=== PATIENT | female | born 1980 | race African-American/Black ===

== ENCOUNTER 2017-07-02 20:55 | Emergency (ER) | payer SELFPAY ==
[~2017-07-02] VITALS: Ht 157.5 cm; Wt 87.5 kg
[2017-07-02 21:53] LABS: INFLUENZAE A&B ANTIGEN (RAPID) NEGATIVE (NEGATIVE); STREPTOCOCCUS GRP A ANTIGEN NEGATIVE (NEGATIVE)
--- NOTE | 2017-07-02 22:35 | Diagnostic Imaging Report ---
EXAMINATION: CHEST 2 VIEWS INDICATION: Chest pain COMPARISON: None FINDINGS: TUBES and LINES: None. LUNGS: Lungs are well inflated. Lungs are clear. There is no evidence of pneumonia or pulmonary edema. PLEURA: No pleural effusion or pneumothorax. HEART AND MEDIASTINUM: The cardiomediastinal silhouette is unremarkable. BONES AND SOFT TISSUES: No acute osseous lesion. Soft tissues are unremarkable. UPPER ABDOMEN: No free air under the diaphragm. IMPRESSION: No acute thoracic abnormality. Signed by: Dr. Wild Key M.D. on 07/02/2017 10:31 PM
[2017-07-02 22:50] VITALS: BP 141/69
== END 2017-07-02 22:53 | disposition home or self-care (01) ==
LOC: ER 20:55
DX: E04.9 Nontoxic goiter, unspecified (principal); R07.0 Pain in throat; Z85.43 Personal history of malignant neoplasm of ovary; J45.909 Unspecified asthma, uncomplicated
CPT/HCPCS: 71020; 83518; 87070; 87400; 93005; 99283

== ENCOUNTER 2017-07-20 18:03 | Emergency (ER) | payer SELFPAY ==
[~2017-07-20] VITALS: Ht 157.5 cm; Wt 87.5 kg
--- OUTSIDE RECORDS SUMMARY | 2017-07-20 18:05 | XMS REPORT | Clinical Summary ---
Author Author [facility] Organization [facility] Address Unknown Phone Unavailable Care Team Providers Care Machine Cage Maker Name Role Phone Asked, Pcp PCP Unavailable Allergies Active Allergy Reactions Severity Noted Date Comments Meperidine Shortness Of Breath High 02/15/2017 angioedema Ibuprofen Shortness Of Breath High 02/15/2017 angioedema Ketorolac Shortness Of Breath High 02/15/2017 angioedema Current Medications Prescription Sig. Disp. Refills Start End Date Status Date pantoprazole (PROTONIX) Take 20 mg by mouth Active 20 MG EC tablet daily. atorvastatin (LIPITOR) 10 Take 10 mg by mouth Active MG tablet daily. zolpidem (AMBIEN) 10 mg Take 10 mg by mouth Active tablet nightly as needed for sleep. aspirin (ECOTRIN) 81 MG Take 81 mg by mouth Active enteric coated tablet daily. albuterol (PROAIR Inhale 2 puffs every 6 03/20/20 Discontin HFA,PROVENTIL (six) hours as needed for 17 ued HFA,VENTOLIN HFA) 90 wheezing. mcg/actuation inhaler traMADol (ULTRAM) 50 mg Take 1 tablet (50 mg 20 tablet 0 02/16/20 tablet total) by mouth every 6 17 17 (six) hours as needed for moderate pain for up to 5 days. methylPREDNISolone follow package directions 21 tablet 0 02/16/20 (MEDROL DOSEPAK) 4 mg 17 17 tablet azithromycin (ZITHROMAX) Take first 2 tablets 6 tablet 0 02/16/20 250 MG tablet together, then 1 every 17 17 day until finished. albuterol (ACCUNEB) 2.5 Take 3 mL (2.5 mg total) 75 mL 0 03/20/20 mg /3 mL (0.083 %) by nebulization every 4 17 17 nebulizer solution (four) hours as needed for wheezing for up to 30 days. albuterol (PROAIR Inhale 2 puffs every 4 1 Inhaler 0 03/20/20 HFA,PROVENTIL (four) hours as needed 17 17 HFA,VENTOLIN HFA) 90 for wheezing for up to 30 mcg/actuation inhaler days. predniSONE (DELTASONE) 20 Take 3 tablets (60 mg 15 tablet 0 03/20/20 03/25/20 mg tablet total) by mouth daily for 17 17 5 days. acetaminophen-codeine Take 1-2 tablets by mouth 20 tablet 0 03/20/20 03/25/20 (TYLENOL WITH CODEINE #3) every 4 (four) hours as 17 17 300-30 mg per tablet needed for moderate pain for up to 5 days. Active Problems Not on file Encounters Date Type Specialty Care Team Description 03/25/2017 Emergency Emergency Medicine Antonio Romero, Soft palate edema DO (Primary Dx);Neck pain 03/20/2017 Emergency Emergency Medicine Desmond Ugarte MD Moderate asthma with exacerbation, unspecified whether persistent (Primary Dx);Cyst of left ovary 02/15/2017 Emergency Emergency Medicine Corie Bonner MD Asthma exacerbation (Primary Dx) after 07/19/2016 Social History Tobacco Use Types Packs/Day Years Used Date Never Smoker Alcohol Use Drinks/Week oz/Week Comments No Sex Assigned at Date Recorded Not on file Last Filed Vital Signs Vital Sign Reading Time Taken Blood Pressure 120/62 03/25/2017 4:52 AM CDT Pulse 69 03/25/2017 4:52 AM CDT Temperature 37.2 C (98.9 F) 03/25/2017 4:52 AM CDT Respiratory Rate 16 03/25/2017 4:52 AM CDT Oxygen Saturation 99% 03/25/2017 4:52 AM CDT Inhaled Oxygen - - Concentration Weight 85.3 kg (188 lb) 03/25/2017 1:58 AM CDT Height 157.5 cm (5' 2") 03/25/2017 1:58 AM CDT Body Mass Index 34.39 03/25/2017 1:58 AM CDT Plan of Treatment Health Maintenance Due Date Last Done Comments PAP SMEAR 2001 INFLUENZA VACCINE 01/10/2017 Results * CT Soft Tissue Neck W Contrast (03/25/2017 4:01 AM) Specimen Performing Laboratory [facility] [address] [place] [address] Narrative EXAMINATION: CT SOFT TISSUE NECK W CONTRAST CLINICAL HISTORY: neck swellingshortness of breath COMPARISON:None TECHNIQUE: Postcontrast enhanced imaging through the neck was performed from the upper chest through the skull base with coronal and sagittal reconstructed images. CT scans are performed using radiation dose reduction techniques (iterative reconstruction and/or automated exposure control). Technical factors are evaluated and adjusted to ensure appropriate moderation of exposure. Automated dose management technology is applied to adjust radiation exposure while achieving a diagnostic quality image. FINDINGS: There may been slight swelling of the soft palate. Airway is otherwise patent. The nasopharynx, oropharynx, oral cavity, parapharyngeal space, and retropharyngeal space are normal. The larynx, hypopharynx, and supraglottis are normal. The orbits, paranasal sinuses, and skull base are normal. No incidental thyroid nodules are noted. No lymphadenopathy. The visualized vascular and osseous structures are normal. The lung apices are unremarkable. IMPRESSION: Slight swelling of the soft palate. Airway is otherwise patent. [id number] Procedure Note Interface, Radiology Results Incoming - 03/25/2017 4:09 AM CDT EXAMINATION: CT SOFT TISSUE NECK W CONTRAST CLINICAL HISTORY: neck swelling shortness of breath COMPARISON: None TECHNIQUE: Postcontrast enhanced imaging through the neck was performed from the upper chest through the skull base with coronal and sagittal reconstructed images. CT scans are performed using radiation dose reduction techniques (iterative reconstruction and/or automated exposure control). Technical factors are evaluated and adjusted to ensure appropriate moderation of exposure. Automated dose management technology is applied to adjust radiation exposure while achieving a diagnostic quality image. FINDINGS: There may been slight swelling of the soft palate. Airway is otherwise patent. The nasopharynx, oropharynx, oral cavity, parapharyngeal space, and retropharyngeal space are normal. The larynx, hypopharynx, and supraglottis are normal. The orbits, paranasal sinuses, and skull base are normal. No incidental thyroid nodules are noted. No lymphadenopathy. The visualized vascular and osseous structures are normal. The lung apices are unremarkable. IMPRESSION: Slight swelling of the soft palate. Airway is otherwise patent. [id number] * Urinalysis screen and microscopy, with reflex to culture (03/25/2017 2:20 AM) Only the most recent of 2 results within the time period is included. Component Value Ref Range Specimen site Clean catch Color, UA Straw Appearance, UA Hazy Specific gravity, UA 1.015 1.001 - 1.035 pH, UA 6.0 5.0 - 8.5 Protein, UA 1+ (A) Negative Glucose, UA Negative Negative Ketones, UA Negative Negative Bilirubin, UA Negative Negative Blood, UA Negative Negative Nitrite, UA Negative Negative Urobilinogen, UA <2.0 <2.0 Leukocyte esterase, UA Negative Negative Epithelial cells, UA 2 /HPF WBC, UA 3 0 - 4 /HPF RBC, UA 1 0 - 2 /HPF Bacteria, UA Few None seen Yeast, UA None seen Yeast with pseudohyphae, None seen UA Specimen Performing Laboratory Urine [facility] DEPARTMENT OF PATHOLOGY AND GENOMIC MEDICINE [address] [place] [address] * Estimated GFR (03/25/2017 2:20 AM) Only the most recent of 3 results within the time period is included. Component Value Ref Range GFR Non Af Amer 81 mL/min/1.73 m2 GFR Af Amer >90 mL/min/1.73 m2 Comment: Chronic kidney disease: <60 mL/min/1.73m2 Kidney failure: <15 mL/min/1.73m2 The estimated GFR is calculated from the IDMS-traceable Modification of Diet in Renal Disease Equation. The accuracy of the calculation is poor when the creatinine is normal. Calculated values >90 mL/min/1.73m2 are not reported. This equation has not been validated in children (<18 years), women, the elderly (>70 years), or ethnic groups other than Caucasians and Americans. Specimen Performing Laboratory Plasma specimen [facility] DEPARTMENT OF PATHOLOGY AND GENOMIC MEDICINE [address] [place] [address] * CBC with platelet and differential (03/25/2017 2:20 AM) Only the most recent of 3 results within the time period is included. Component Value Ref Range WBC 7.71 4.50 - 11.00 k/uL RBC 3.92 (L) 4.20 - 5.50 m/uL HGB 11.2 (L) 12.0 - 16.0 g/dL HCT 33.5 (L) 37.0 - 47.0 % MCV 85.5 82.0 - 100.0 fL MCH 28.6 27.0 - 34.0 pg MCHC 33.4 31.0 - 37.0 g/dL RDW - SD 41.3 37.0 - 55.0 fL MPV 10.4 8.8 - 13.2 fL Platelet count 255 150 - 400 k/uL Nucleated RBC 0.00 /100 WBC Neutrophils 53.8 39.0 - 69.0 % Lymphocytes 34.0 25.0 - 45.0 % Monocytes 8.0 0.0 - 10.0 % Eosinophils 2.9 0.0 - 5.0 % Basophils 0.4 0.0 - 1.0 % Immature granulocytes 0.9Comment: "Immature granulocytes" 0.0 - 1.0 % (promyelocytes, myelocytes, metamyelocytes) Specimen Performing Laboratory Blood [facility] DEPARTMENT OF PATHOLOGY AND [facility] MEDICINE [address] [place] [address] * Urine culture (03/25/2017 2:20 AM) Only the most recent of 2 results within the time period is included. Component Value Ref Range Urine culture SEE COMMENTComment: Bacteriuria screen negative. Specimen Performing Laboratory Urine [facility] DEPARTMENT OF PATHOLOGY AND [facility]IC[facility] [address] [place] [address] * hCG qualitative, serum screen (03/25/2017 2:20 AM) Component Value Ref Range hCG qualitative, serum NegativeComment: Sensitivity of HCG test: 25 mIU/mL Specimen Performing Laboratory Blood [facility] [place] [address] * Thyroid stimulating hormone (03/25/2017 2:20 AM) Component Value Ref Range TSH 2.05 0.27 - 4.20 uIU/mL Specimen Performing Laboratory Plasma specimen [facility] DEPARTMENT OF PATHOLOGY AND [facility]INE [address] [place] [address] * T4, free (03/25/2017 2:20 AM) Component Value Ref Range T4, free 1.0 0.9 - 1.7 ng/dL Specimen Performing Laboratory Plasma specimen [facility] DEPARTMENT OF PATHOLOGY AND [facility] [address] [place] [address] * Basic metabolic panel (03/25/2017 2:20 AM) Component Value Ref Range Sodium 138 135 - 148 mEq/L Potassium 3.8 3.5 - 5.0 mEq/L Chloride 102 98 - 112 mEq/L CO2 24 24 - 31 mEq/L Anion gap 12 7 - 15 mEq/L Comment: Starting from September , anion gap calculation no longer incorporates potassium. Please note the change. BUN 14 6 - 20 mg/dL Creatinine 0.8 0.5 - 0.9 mg/dL Glucose 101 (H) 65 - 99 mg/dL Calcium 8.6 8.3 - 10.2 mg/dL Specimen Performing Laboratory Plasma specimen [facility] DEPARTMENT OF PATHOLOGY AND GENOMIC MEDICINE [address] [place] [address] * ECG ED Preliminary Interpretation - NOT AN ORDER (03/21/2017 9:59 AM) Only the most recent of 2 results within the time period is included. Narrative Desmond Ugarte MD 03/21/20179:59 AM ECG ED Preliminary Interpretation - Not an Order Performed by: DESMOND UGARTE Authorized by: DESMOND UGARTE ECG reviewed by ED Physician in the absence of a on air announcer: yes Previous ECG: Previous ECG:Compared to current Comparison ECG info:From ECG done on 02/15/2017 Similarity:No change Interpretation: Interpretation: abnormal Rate: ECG rate:73 ECG rate assessment: normal Rhythm: Rhythm: sinus rhythm Ectopy: Ectopy: none QRS: QRS axis:Normal QRS intervals:Normal Conduction: Conduction: normal ST segments: ST segments:Normal T waves: T waves: inverted T wave depression noted on lead: anteroseptal leads. * Troponin (03/20/2017 8:55 AM) Only the most recent of 2 results within the time period is included. Component Value Ref Range Troponin <0.30 0.00 - 0.30 ng/mL Comment: 0.30 - 1.49 ng/ml May indicate increased risk of acute coronary syndrome. >=1.5 ng/ml Consistent with acute myocardial infarction. The diagnostic value of a single normal or non-diagnostic result is questionable. Serial samples at 2-6 hour intervals are required to rule out acute myocardial injury. Specimen Performing Laboratory Plasma specimen [facility] DEPARTMENT OF PATHOLOGY AND GENOMIC MEDICINE [address] [place] [address] * CT Renal Stone Protocol (03/20/2017 7:53 AM) Specimen Performing Laboratory [facility] [address] [place] [address] Narrative EXAMINATION:CT RENAL STONE PROTOCOL CLINICAL HISTORY:Flank Pain TECHNIQUE: Multiple axial images of the abdomen and pelvis were obtained without intravenous administration of iodinated contrast. Sagittal and coronal computerized reformatted images were also obtained. The lack of intravenous contrast reduces the sensitivity of detecting solid organ disease. CT imaging was performed with iterative reconstruction technique and/or automated exposure control to reduce radiation dose. COMPARISON:October 13, [address] abdomen and pelvis FINDINGS: The lung bases are clear. No free intraperitoneal air or fluid. Small fat- containing umbilical hernia unchanged. Abdomen: The liver is grossly unremarkable in appearance without obvious mass. Spleen is normal size. Gallbladder grossly unremarkable. No biliary dilatation. Pancreas normal size. No obvious mass or peripancreatic inflammation. No abnormal fluid collections. Adrenal glands normal size. Abdominal aorta normal caliber. No para-aortic adenopathy. Kidneys grossly normal size. No obvious mass. No hydronephrosis or tract calculus. Scattered fecal material throughout the colon. No obstruction evident in the abdomen. Pelvis: Moderate scattered fecal material throughout the colon. No diverticular change. No obstruction. Appendix not identified. Suspect right ovarian enlargement to 5.8 cm x 4.6 cm x 4.8 cm with a 3.7 cm cyst. . Uterus not identified. Left ovary are not enlarged. Suspect follicular changes on the left ovary. Ultrasound examination recommended. No pelvic mass or adenopathy. No free fluid Bladder grossly unremarkable. Visualized skeleton intact. IMPRESSION: Suspect right ovarian enlargement to 5.8 cm with 3.7 cm cyst. Pelvic ultrasound recommended Nonvisualization uterus Nonvisualization appendix. Otherwise unremarkable noncontrast CT abdomen and pelvis [id number] Procedure Note Hm Interface, Radiology Results Incoming - 03/20/2017 8:12 AM CDT EXAMINATION: CT RENAL STONE PROTOCOL CLINICAL HISTORY: Flank Pain TECHNIQUE: Multiple axial images of the abdomen and pelvis were obtained without intravenous administration of iodinated contrast. Sagittal and coronal computerized reformatted images were also obtained. The lack of intravenous contrast reduces the sensitivity of detecting solid organ disease. CT imaging was performed with iterative reconstruction technique and/or automated exposure control to reduce radiation dose. COMPARISON: October 13, [address] abdomen and pelvis FINDINGS: The lung bases are clear. No free intraperitoneal air or fluid. Small fat- containing umbilical hernia unchanged. Abdomen: The liver is grossly unremarkable in appearance without obvious mass. Spleen is normal size. Gallbladder grossly unremarkable. No biliary dilatation. Pancreas normal size. No obvious mass or peripancreatic inflammation. No abnormal fluid collections. Adrenal glands normal size. Abdominal aorta normal caliber. No para-aortic adenopathy. Kidneys grossly normal size. No obvious mass. No hydronephrosis or tract calculus. Scattered fecal material throughout the colon. No obstruction evident in the abdomen. Pelvis: Moderate scattered fecal material throughout the colon. No diverticular change. No obstruction. Appendix not identified. Suspect right ovarian enlargement to 5.8 cm x 4.6 cm x 4.8 cm with a 3.7 cm cyst. . Uterus not identified. Left ovary are not enlarged. Suspect follicular changes on the left ovary. Ultrasound examination recommended. No pelvic mass or adenopathy. No free fluid Bladder grossly unremarkable. Visualized skeleton intact. IMPRESSION: Suspect right ovarian enlargement to 5.8 cm with 3.7 cm cyst. Pelvic ultrasound recommended Nonvisualization uterus Nonvisualization appendix. Otherwise unremarkable noncontrast CT abdomen and pelvis [id number] * D-dimer (03/20/2017 6:26 AM) Only the most recent of 2 results within the time period is included. Component Value Ref Range D-dimer 0.35 0.00 - 0.40 ug/mL FEU Comment: Units are ug/ml Fibrinogen Equivalent Unit. When combined with low clinical probability, D-dimer results of less than 0.5 ug/ml FEU have a good negative predictive value in excluding PE or DVT. For D-dimer results greater than 0.5 ug/ml FEU further testing is indicated if PE or DVT is suspected clinically. Elevated D-dimer results have been reported in DVT, PE, and DIC cases and may indicate the presence of a clot. D-dimer results may be elevated due to old age, , inflammatory diseases, trauma, post-operative states, sepsis, and malignancies. Specimen Performing Laboratory Blood [facility] DEPARTMENT OF PATHOLOGY AND GENOMIC MEDICINE [address] [place] [address] * XR Chest 1 Vw Portable (03/20/2017 5:35 AM) [facility]imen [facility] [address] [place] [address] Narrative Examination:XR CHEST 1 VW PORTABLE Clinical History:Chest Pain Comparison: None. Technique: Single frontal view of the chest is obtained. Findings: The lungs are free of infiltrate. The heart size is normal. No pleural effusion is seen. Impression: No active cardiopulmonary disease identified. [id number] Procedure Note Interface, Radiology Results Incoming - 03/20/2017 5:51 AM CDT Examination: XR CHEST 1 VW PORTABLE Clinical History: Chest Pain Comparison: None. Technique: Single frontal view of the chest is obtained. Findings: The lungs are free of infiltrate. The heart size is normal. No pleural effusion is seen. Impression: No active cardiopulmonary disease identified. [id number] * hCG qualitative, urine screen (03/20/2017 5:34 AM) Only the most recent of 2 results within the time period is included. Component Value Ref Range hCG qualitative, urine NegativeComment: Sensitivity of HCG test: 25 mIU/mL Specimen Performing Laboratory Urine [facility] DEPARTMENT OF PATHOLOGY AND GENOMIC MEDICINE [address] [place] [phone] * B natriuretic peptide (03/20/2017 5:34 AM) Component Value Ref Range BNP <3 0 - 100 pg/mL Specimen Performing Laboratory Blood [facility] DEPARTMENT OF PATHOLOGY AND [address] [address] * Comprehensive metabolic panel (03/20/2017 5:07 AM) Only the most recent of 2 results within the time period is included. Component Value Ref Range Sodium 139 135 - 148 mEq/L Potassium 3.9 3.5 - 5.0 mEq/L Chloride 104 98 - 112 mEq/L CO2 20 (L) 24 - 31 mEq/L Anion gap 15 7 - 15 mEq/L Comment: Starting from September , anion gap calculation no longer incorporates potassium. Please note the change. BUN 12 6 - 20 mg/dL Creatinine 0.7 0.5 - 0.9 mg/dL Glucose 105 (H) 65 - 99 mg/dL Calcium 9.4 8.3 - 10.2 mg/dL Protein 7.1 6.3 - 8.3 g/dL Comment: 4.6-7.0 g/dL 1 week 4.4-7.6 g/dL 7 months-1year 5.1-7.3 g/dL 1-2 years 5.6-7.5 g/dL >3 years 6.0-8.0 g/dL 18-150 6.3-8.3 g/dL Albumin 3.7 3.5 - 5.0 g/dL A/G ratio 1.1 0.7 - 3.8 Alkaline phosphatase 40 35 - 104 U/L AST 20 10 - 35 U/L ALT 19 5 - 50 U/L Total bilirubin 0.5 0.0 - 1.2 mg/dL Specimen Performing Laboratory Plasma specimen [facility] DEPARTMENT OF PATHOLOGY AND GENOMIC MEDICINE [address] [place] [address] * ECG 12 lead (03/20/2017 5:06 AM) Only the most recent of 2 results within the time period is included. Component Value Ref Range Ventricular rate 73 Atrial rate 73 RI interval 150 QRSD interval 98 QT interval 396 QTC interval 436 P axis 1 34 QRS axis 1 46 T wave axis 59 EKG impression Normal sinus rhythm-T wave abnormality, consider anterior ischemia-Abnormal ECG- Specimen Performing Laboratory [facility] [address] [place] [id number] * CT Angiogram Pe Chest (02/15/2017 10:44 PM) Specimen Performing Laboratory [facility] [address] [place] [address] Narrative EXAMINATION: CT ANGIOGRAM PE CHEST CLINICAL HISTORY: sobpleuritic chest pain TECHNIQUE:CT angiographic images of the chest were obtained during intravenous administration of iodinated contrast. Computerized reformatted images and 3-D MIP images were also obtained and archived (CT pulmonary embolus protocol). Scan was performed using radiation dose reduction techniques. COMPARISON: September 01, 2008 FINDINGS: Pulmonary arterial enhancement is technically adequate. There is no pulmonary embolism. No aortic aneurysm or dissection. Lungs are clear. Central airways are patent. No pleural or pericardial effusion. Osseous structures are intact. IMPRESSION: No pulmonary embolism or other acute findings. [id number] Procedure Note Interface, Radiology Results Incoming - 02/15/2017 10:54 PM CDT EXAMINATION: CT ANGIOGRAM PE CHEST CLINICAL HISTORY: sob pleuritic chest pain TECHNIQUE: CT angiographic images of the chest were obtained during intravenous administration of iodinated contrast. Computerized reformatted images and 3-D MIP images were also obtained and archived (CT pulmonary embolus protocol). Scan was performed using radiation dose reduction techniques. COMPARISON: September 01, 2008 FINDINGS: Pulmonary arterial enhancement is technically adequate. There is no pulmonary embolism. No aortic aneurysm or dissection. Lungs are clear. Central airways are patent. No pleural or pericardial effusion. Osseous structures are intact. IMPRESSION: No pulmonary embolism or other acute findings. [id number] * Troponin, I-Stat (02/15/2017 9:40 PM) Component Value Ref Range Troponin, I-Stat 0.00 0.00 - 0.08 ng/mL Comment: 0.09 - 1.49 ng/ml May indicate increased risk of acute coronary syndrome. >=1.5 ng/ml Consistent with acute myocardial infarction. The diagnostic value of a single normal or non-diagnostic result is questionable. Serial samples at 2-6 hour intervals are required to rule out acute myocardial injury. Specimen Performing Laboratory Plasma specimen DEPARTMENT OF PATHOLOGY AND GENOMIC MEDICINE, [address] [address] * B natriuretic pep, I-Stat (02/15/2017 9:40 PM) Component Value Ref Range BNP, I-Stat <15 0 - 100 pg/mL Specimen Performing Laboratory Blood [facility] OF [facility]OLOG[facility] AND GENOMIC MEDICINE[address] [address] * Manual differential (02/15/2017 9:40 PM) Component Value Ref Range Manual differential PERFORMED Neutrophils 49.0 39.0 - 69.0 % Lymphocytes 36.0 25.0 - 45.0 % Monocytes 7.0 0.0 - 10.0 % Eosinophils 7.0 (H) 0.0 - 5.0 % Basophils 0.0 0.0 - 1.0 % Metamyelocytes 0 % Myelocytes 1 % Promyelocytes 0 % Platelet slide review Akin adequate Specimen Performing Laboratory [facility] DEPARTMENT OF PATHOLOGY AND GENOMIC MEDICINE [address] [place] [address] * Urinalysis (02/15/2017 8:37 PM) Component Value Ref Range Glucose, UA Negative Negative Bilirubin, UA Negative Negative Ketones, UA Negative Negative Specific gravity, UA 1.015 1.001 - 1.035 Blood, UA Negative Negative pH, UA 7.0 5.0 - 8.5 Protein, UA Negative Negative Urobilinogen, UA <2.0 <2.0 Nitrite, UA Negative Negative Leukocyte esterase, UA Negative Negative Color, UA Yellow Appearance, UA Hazy Specimen Performing Laboratory Urine [facility]Y [facility]OM[facility] MEDICINE[address] [address] after 07/19/2016
--- OUTSIDE RECORDS SUMMARY | 2017-07-20 18:06 | XMS REPORT ---
Author [facility] Address Unknown Phone Unavailable Care Team Providers Care Email Campaign Specialist Name Role Phone VIK BOYCE Unavailable Unavailable Problems This patient has no known problems. Allergies, Adverse Reactions, Alerts This patient has no known allergies or adverse reactions. Medications This patient has no known medications. Results Test Description Test Time Test Comments Text Results Atomic Results Result Comments CT ABDOMEN/PELVIS WITH 2017-03-11 14:14:[address] [id number] IMAGING REPORTPatient Name : Fran TATE of Service: [id number]: 36 Sex: F Order #: [id number] Room: ERSDOB: 1980 X-Ray Number: [id number] Record Number: [id number] Hospital Number: [id number] Physician: MIKA CHEATHAM TANOrdering Physician: FELICIA PEÑALOZA abdomen and pelvis with contrast 1328 hoursHistory: Abdominal pain with nausea and diarrhea.This CT exam was performed using one or more of the following dosereduction techniques: Automated exposure control, adjustment of the MAand/or KV according to patient size or use of iterative reconstructiontechnique.Findings:Solid abdominal viscera demonstrate no mass lesions or lacerations.Both kidneys enhance symmetrically. There is no hydronephrosis.There is no free air or free fluid. There are no abnormal fluidcollections.There is no CT evidence for appendicitis , diverticulitis or pancreatitis.There is no small bowel obstruction detected.There is no obvious enlarged adenopathy.There is no definite acute abnormality present.Impression:No acute intra-abdominal or intrapelvic abnormality is detected.Electronically Signed By: Lobo Ocampo M.D., 2016 2:12 PMLegally authenticated by ANURAG FROST 2017-03-11 14:12:18 RAD, CHEST, 2 VIEWS 2017-02-23 05:43:00 Reason for exam:->SHORTNESS OF BREATH FINAL REPORT RAD, CHEST, 2 VIEWS INDICATION: SHORTNESS OF BREATH COMPARISON: None TECHNIQUE: Frontal and lateral views of the chest. FINDINGS: Cardiomediastinal silhouette within normal limits.No overt consolidative or congestive change.No acute osseous abnormality. IMPRESSION:No acute cardiopulmonary abnormality. Signed: Mallory Galvan MDReport Verified Date/Time: 02/23/2017 05:43:53 Reading Location: [address] Ortho Consult Reading Room T 2 VIEWS [place] [address] Patient Name: DENY TATE MR #: [id number] : 1980 Age/Sex: 36/F Req #: [id number] Adm Physician: Ordered by: VIK BOYCE MD Report #: [id number] Location: ER Room/Bed: Procedure: [id number] 0053 DX/CHEST 2 VIEWS Exam Date: Exam Time: REPORT STATUS: Signed EXAMINATION: CHEST 2 VIEWS INDICATION: Chest pain COMPARISON: None FINDINGS: TUBES and LINES: None. LUNGS: Lungs are well inflated. Lungs are clear. There is no evidence of pneumonia or pulmonary edema. PLEURA: No pleural effusion or pneumothorax. HEART AND MEDIASTINUM: The cardiomediastinal silhouette is unremarkable. BONES AND SOFT TISSUES: No acute osseous lesion. Soft tissues are unremarkable. UPPER ABDOMEN: No free air under the diaphragm. IMPRESSION: No acute thoracic abnormality. Signed by: Dr. Wild Key M.D. on 07/02/2017 10:31 PM Dictated By: WILD LIND MD 30 COPY TO: VIK BOYCE MD
--- NOTE | 2017-07-20 19:25 | Diagnostic Imaging Report ---
EXAMINATION: CHEST 2 VIEWS INDICATION: \S\FLU LIKE \[id number] \S\[id number] COMPARISON: 07/02/2017 FINDINGS: PA and lateral views TUBES and LINES: None. LUNGS: Lungs are well inflated. Lungs are clear. There is no evidence of pneumonia or pulmonary edema. PLEURA: No pleural effusion or pneumothorax. HEART AND MEDIASTINUM: The cardiomediastinal silhouette is unremarkable. BONES AND SOFT TISSUES: No acute osseous lesion. Soft tissues are unremarkable. UPPER ABDOMEN: No free air under the diaphragm. IMPRESSION: No acute thoracic abnormality. Signed by: Dr. Abran Lopez MD on 07/20/2017 7:21 PM
== END 2017-07-20 22:15 | disposition left against medical advice (07) ==
LOC: ER 18:03
DX: J02.9 Acute pharyngitis, unspecified (principal); J30.1 Allergic rhinitis due to pollen; J45.909 Unspecified asthma, uncomplicated
CPT/HCPCS: 71046; 99283